=== PATIENT | female | born 1955 | race Caucasian/White ===

== ENCOUNTER 2016-05-13 08:44 | Inpatient (IN) | payer BC ==
[2016-05-13] MEDS ORDERED: Morphine INJ* 2 MG/ML 1 ML CARPUJECT IV ONE (09:15)
[2016-05-13] MEDS ORDERED: Ondansetron INJ* 2 MG/ML VIAL IV ONE (09:15)
--- NOTE | 2016-05-13 09:21 | ED ---
Abdominal Pain/Female - HPI Summary HPI Summary: Pt here w/ lower pelvic pain and dysuria x 1 week. Thought she may have had a UTI and was taking anbx for a dental infection so waited to see if this helped. No change in sx and has Lt flank pain this morning so decided to come into ED. Denies fever, chills, N/V/D, vaginal d/c. Only pain she has now is w/ urination. H/o kidney stone and this feels similar (required stent placement with Dr. Rodriguez - last f/u appt was 7-8 yrs ago - pt believes she passed her last stone 5 years ago). Lt flank pain worse driving over bumps on the way here. She's been drinking lots of iced tea and green tea - stones in the past have been identified as uric acid stones. She denies h/o gout and does not take uric acid lowering medications. She has been taking motrin s/p Lt knee replacement. Also has HTN and metabolic syndrome (good chol is low, bad chol is okay). H/o hives w/ toradol. Has had morphine in the past - only effect was mild dizziness. LAST ATE TOAST TODAY AT 7:30AM - History of Current Complaint Chief Complaint: EDAbdPain Stated Complaint: POSSIBLE KIDNEY STONE Time Seen by Provider: 05/13/16 09:02 Hx Obtained From: Patient Pain Intensity: 5 Allergies/Adverse Reactions: Allergies Allergy/AdvReac Type Severity Reaction Status Date / Time Hydrocodone AdvReac Mild itching, Verified 05/13/16 08:55 vomiting Ketorolac Tromethamine AdvReac Mild itching, Verified 05/13/16 08:55 [From Toradol] hives, made her crazy PMH/Surg Hx/FS Hx/Imm Hx Previously Healthy: Yes Endocrine/Hematology History: Denies: Hx Anticoagulant Therapy, Hx Blood Disorders, Hx Diabetes Cardiovascular History: Reports: Hx Hypertension - WELL CONTROLLED ON MED Denies: Hx Pacemaker/ICD Respiratory History: Reports: Hx Sleep Apnea GI History: Reports: Other GI Disorders - colon ca - resection Denies: Hx Crohn's Disease, Hx Diverticulosis, Hx Gall Bladder Disease, Hx Gastroesophageal Reflux Disease, Hx Gastrointestinal Bleed, Hx Irritable Bowel History: Reports: Hx Kidney Stones - uric acid - REQUIRED stent > 8 years ago , Michael Musculoskeletal History: Reports: Hx Orthopedic Injury - hx right ACL injury knee; Lt knee replacement Sensory History: Denies: Hx Hearing Aid Psychiatric History: Denies: Hx Panic Disorder - Cancer History Cancer Type, Location and Year: Colon cancer 2009 Hx Chemotherapy: No Hx Radiation Therapy: No - Surgical History Surgery Procedure, Year, and Place: BILATERAL ACL REPLACEMENT , BILATERAL BUNIONECTOMY, HYSTERECTOMY, COLON RESECTIO,RT LUMPECTOMY. Infectious Disease History: No Infectious Disease History: Denies: Traveled Outside the [place] in Last 30 Days - Family History Known Family History: Positive: None - Social History Occupation: Retired Lives: With Family - Alcohol Use: Occasionally Hx Substance Use: No Substance Use Type: Reports: None Hx Tobacco Use: No Smoking Status (MU): Never Smoked Tobacco Review of Systems Negative: Fever, Chills Eyes: Negative ENT: Negative Negative: Chest Pain Negative: Shortness Of Breath Gastrointestinal: Other - see HPI Positive: see HPI Musculoskeletal: Negative Negative: Bruising Neurological: Negative Psychological: Normal All Other Systems Reviewed And Are Negative: Yes Physical Exam Triage Information Reviewed: Yes Vital Signs On Initial Exam: Initial Vitals Temp Pulse Resp BP Pulse Ox 97.9 F 101 17 203/94 99 05/13/16 08:47 05/13/16 08:47 05/13/16 08:47 05/13/16 08:47 05/13/16 08:47 Vital Signs Reviewed: Yes Appearance: Positive: Well-Appearing, No Pain Distress, Obese Skin: Positive: Warm, Dry Head/Face: Positive: Normal Head/Face Inspection Eyes: Positive: Normal, EOMI, Conjunctiva Clear - anicteric sclera ENT: Positive: Hearing grossly normal, Pharynx normal - mucosa somewhat dry. Negative: Nasal congestion, Nasal drainage Neck: Positive: Supple Respiratory/Lung Sounds: Positive: Clear to Auscultation, Breath Sounds Present. Negative: Rales, Rhonchi, Wheezes Cardiovascular: Positive: Normal, RRR Abdomen Description: Positive: Nontender - very mild - pt decribes as "uncomfortable", Soft, CVA Tenderness (L) - mild. Negative: CVA Tenderness (R) Bowel Sounds: Positive: Present Musculoskeletal: Positive: Normal, Strength/ROM Intact Neurological: Positive: Normal, Sensory/Motor Intact, Alert, Oriented to Person Place, Time, CN Intact II-III Psychiatric: Positive: Normal - Anastasia Coma Scale Coma Scale Total: 15 Diagnostics - Vital Signs Vital Signs Temp Pulse Resp BP Pulse Ox 05/13/16 08:47 97.9 F 101 17 203/94 99 - Laboratory Result Diagrams: 05/13/16 09:55 05/13/16 09:55 Lab Statement: Any lab studies that have been ordered have been reviewed, and results considered in the medical decision making process. Re-Evaluation - Re-Evaluation First Eval Change: Worse - pt's flank pain is worse - will order more morphine Abdominal Pain Fem Course/Dx - Course Course Of Treatment: Pt presents w/ 1 week h/o lower pelvic pain and 1 day h/o Lt flank pain. H/o kidney stones and this feels similar. CT ab/pelvis reveals 1.6cm stone at UPJ and #2 1 cm stones within Lt kidney. U/A indicate infection w / + nitrates and bacteria. WBC's WNL and pt is afebrile w/ improved BP since here. She initially received 2mg morphine IV as she reported she was not in much pain at all and morphine makes her dizzy. After tolerating 2mg well and pain increasing, ordered 4mg morphine IV. Discussed w/ Dr. Rucker and Dr. Coughlin - pt to receive 250cc/hr of LR, rocephin 2 grams, gentamicin 160mg at 13: 00 and strict NPO (pt has not had fluids or food since here and made of aware of strict guidelines in an effort to not delay her care). Dr. Coughlin to take pt to OR today - he will coordinate w/ OR staff. Requested hospitalist admit d/t med hx HTN - spoke w/ Dr. Bush who will admit for OBV. Pt voices understanding her care plan for the day and agrees with plan. - Diagnoses Provider Diagnoses: Renal calculus, left - Provider Notifications Discussed Care Of Patient With: Dr. Rucker. Dr. Coughlin. Dr. Bush Discharge - Discharge Plan Condition: Stable Disposition: ADMITTED TO [facility]
--- NOTE | 2016-05-13 09:37 | RAD ---
CLINICAL HISTORY: Pelvic pain with left flank pain and dysuria COMPARISON: March 26, 2011 TECHNIQUE: Multiple contiguous axial CT scans were obtained of the abdomen and pelvis, without intravenous contrast enhancement. Coronal and sagittal multiplanar reformations are submitted for review. Oral contrast was not administered. FINDINGS: The study is limited by the lack of intravenous contrast. This limits evaluation of the solid organs and vasculature. LUNG BASES: The lung bases are clear. LIVER: The liver is diffusely low in attenuation compared to the spleen. There are no focal hepatic parenchymal masses. The liver is enlarged measuring 23 cm in long axis. BILE DUCTS: There is no intrahepatic or extrahepatic biliary dilatation. GALLBLADDER: The gallbladder is normal, without pericholecystic inflammatory change. PANCREAS: The pancreas is normal, without mass or ductal dilatation. SPLEEN: Normal in size and appearance. UPPER GI TRACT: Evaluation of the gastrointestinal tract is limited by incomplete gastric distention. The upper GI tract is unremarkable. SMALL BOWEL AND MESENTERY: The small bowel is normal in contour, course, and caliber. There is no obstruction or dilatation. COLON: There is post surgical change to the rectum. There are scattered diverticula of the sigmoid colon without pericolonic inflammatory change. There is a tubular, vermiform, hollow viscus that is blind ending, and originates from the cecum, consistent with a normal appendix. There is no periappendiceal inflammatory change. ADRENALS: Normal bilaterally. KIDNEYS: There is a 1.1 cm calculus of the midpole the left kidney. There is a large, approximately 1.6 x 1 x 1.1 cm calculus of the left UPJ. There is a 1 cm calculus of the lower pole of left kidney. There is no minimal pelviectasis.. BLADDER: The bladder is smooth in contour. PELVIC ORGANS: The pelvic organs are not visualized. AORTA: The aorta is normal. IVC: Unremarkable LYMPH NODES: There is no lymphadenopathy by size criteria. ABDOMINAL WALL: There is no evidence for abdominal wall hernia. BONES AND SOFT TISSUES: Mild degenerative changes are noted OTHER: None IMPRESSION: 1. MULTIPLE LARGE LEFT-SIDED RENAL CALCULI INCLUDING A 1.6 CM CALCULUS OF THE LEFT UPJ. THERE IS MILD PELVIECTASIS. 2. HEPATOMEGALY WITH FATTY INFILTRATION OF LIVER. 3. SCATTERED DIVERTICULA OF THE SIGMOID COLON
[2016-05-13 10:15] LABS: Hematocrit 43 % (35-47); Hemoglobin 14.1 g/dl (12.0-16.0); Mean Corpuscular HGB Conc 33 g/dl (31-36); Mean Corpuscular Hemoglobin 29 pg (27-31); Mean Corpuscular Volume 89 fL (80-97); Mean Platelet Volume 7 um3 (7.4-10.4); Red Blood Count 4.83 10^6/ul (4.0-5.4); Red Cell Distribution Width 13 % (10.5-15); White Blood Count 10.8 10^3/ul (3.5-10.8)
[2016-05-13 10:23] LABS: Add Diff/Slide Review? Slide Review Added; Comments Flag Yes
[2016-05-13 10:26] LABS: Albumin 4.5 g/dL (3.2-5.2); BUN/Creatinine Ratio 27.5 (8-20); C Reactive Protein 38.44 mg/L (< 5.00); EGFR African American 70.4 (>60); EGFR Non-African American 54.7 (>60); Globulin 3.5 g/dL (2-4); Potassium 3.8 mmol/L (3.5-5.0); Total Bilirubin 0.5 mg/dL (0.2-1.0)
[2016-05-13 10:29] LABS: Urine Bacteria 2+ (Absent); Urine Bilirubin Negative (Negative); Urine Glucose Negative (Negative); Urine Nitrite Positive (Negative)
[2016-05-13] MEDS ORDERED: cefTRIAXone(*) 1 GM in NS 0.9% 50 ML* 50 ML IVPB ONE (11:01)
[2016-05-13] MEDS ORDERED: Morphine INJ* 4 MG/ML 1 ML CARPUJECT IV ONE (11:34)
[2016-05-13] MEDS ORDERED: cefTRIAXone(*) 2 GM in NS 0.9% 100 ML* 100 ML IVPB ONE (11:47)
[2016-05-13] MEDS ORDERED: NS 0.9% 500 ML* 500 ML IV SCH (12:00)
[2016-05-13] MEDS ORDERED: Morphine INJ* 4 MG/ML 1 ML CARPUJECT IV PRN (12:01)
[2016-05-13] MEDS ORDERED: Gentamicin ADULT (*) 40 MG/ML VIAL IVPB ONE ×2 (12:05→13:00)
[2016-05-13] MEDS ORDERED: NS 0.9% 1000 ML* 1,000 ML IV SCH (12:15)
[2016-05-13] MEDS ORDERED: fentaNYL* 50 MCG/ML 2 ML VIAL (100 MCG VIAL) ONE (12:22)
[2016-05-13] MEDS ORDERED: KETAMINE HCL* 50 MG/ML 10 ML VIAL ONE (12:22)
[2016-05-13] MEDS ORDERED: Lidocaine 2% PF * 5 ML VIAL ONE (12:22)
[2016-05-13] MEDS ORDERED: Midazolam* 1 MG/ML 5 ML VIAL (5 MG) ONE (12:22)
[2016-05-13] MEDS ORDERED: Dexamethasone IV* 4 MG/ML 1 ML (4 MG) ONE (12:22)
[2016-05-13] MEDS ORDERED: Ondansetron INJ* 2 MG/ML VIAL ONE (12:22)
--- NOTE | 2016-05-13 12:31 | RAD ---
HISTORY: Obstructive urinary tract stones COMPARISONS: CT dated May 13, 2016 VIEWS: Frontal views of the abdomen. FINDINGS: BOWEL: There is a nonspecific bowel gas pattern, with nondilated small bowel gas noted. There is a large amount of stool within the colon. CALCULI: Evaluation is limited by overlying bowel. There is a 1.9 cm calculus of the left hemiabdomen corresponding to the pelvic stone noted on the previous CT examination. Evaluation of the of the renal parenchymal stones is limited by overlying bowel. BONES AND SOFT TISSUES: There are no osseous abnormalities. OTHER FINDINGS: The lung bases are clear. There is no subphrenic gas. IMPRESSION: 1. LIMITED STUDY. 2. LARGE AMOUNT OF STOOL WITHIN THE COLON. 3. LEFT-SIDED NEPHROLITHIASIS INCLUDING A 1.9 CM CALCULUS CORRESPONDING TO THE LEFT RENAL PELVIC STONE. THE CALCULI ARE NOT WELL VISUALIZED SECONDARY TO OVERLYING BOWEL.
[2016-05-13] MEDS ORDERED: Iohexol 180 (CONTRAST) 10 ML SDV IV ONE (12:35)
[2016-05-13] MEDS ORDERED: Buffered Lidocaine 1% SYR 3ML* 3 ML/SYR SYRINGE INTRADERM ONE (12:49)
[2016-05-13] MEDS ORDERED: Metoclopramide TAB* 10 MG PO ONE (12:49)
[2016-05-13] MEDS ORDERED: Famotidine IV* 10 MG/ML 2 ML (20 mg) IV ONE (12:49)
[2016-05-13] MEDS ORDERED: Famotidine IV* 10 MG/ML 2 ML (20 mg) ONE (13:03)
[2016-05-13] MEDS ORDERED: Gentamicin ADULT (*) 40 MG/ML VIAL ONE (13:03)
[2016-05-13] MEDS ORDERED: Metoclopramide TAB* 10 MG ONE (13:03)
[2016-05-13] MEDS ORDERED: Acetaminophen IV 1GM/100ML * 1,000 MG/100 ML VIAL IVPB ONE (13:08)
[2016-05-13] MEDS ORDERED: Acetaminophen IV 1GM/100ML * 0 ML ONE (13:10)
[2016-05-13] MEDS ORDERED: Acetaminophen IV 1GM/100ML * 100 ML ONE (13:19)
[2016-05-13] MEDS ORDERED: HYDROmorphone INJ* 1 MG/ML CARPUJECT SYRINGE IV PRN (14:16)
[2016-05-13] MEDS ORDERED: fentaNYL* 50 MCG/ML 2 ML VIAL (100 MCG VIAL) IV PRN (14:16)
[2016-05-13] MEDS ORDERED: Ondansetron INJ* 2 MG/ML VIAL IV PRN (14:16)
--- NOTE | 2016-05-13 14:31 | RAD ---
INDICATION: Kidney stone, flank pain COMPARISONS: CT dated May 13, 2016 TECHNIQUE: Fluoroscopy was provided for a retrograde pyelogram and stent placement. Total fluoroscopy time is: 12 seconds FINDINGS: Spot images demonstrate contrast within the left renal collecting system with left-sided cochlea. A left ureteral stent is noted. IMPRESSION: FLUOROSCOPY WAS PROVIDED FOR A RETROGRADE PYELOGRAM AND STENT PLACEMENT CPT II Codes: 6045F
[2016-05-13] MEDS ORDERED: Gentamicin ADULT per pharmacy 1 NOTE MISC FOLLOW UP PRN (14:44)
--- NOTE | 2016-05-13 15:19 | HP ---
HISTORY AND PHYSICAL: DATE OF ADMISSION: 05/13/16 PRIMARY CARE PROVIDER: Maggie Arizmendi MD UROLOGIST: Buster Rodriguez MD CHIEF COMPLAINT: Left flank pain. HISTORY OF PRESENT ILLNESS: Ms. Bae is a 61-year-old female who has a history of kidney stones in the past lasting approximately 5 years ago who presents to the emergency room with complaints of left flank pain. The patient states that beginning last Sunday, she began to have significant dysuria. She states that it felt like burning and knifes when she urinated. Additionally, she felt that there was blood in her urine. These were her only symptoms until the morning of admission when she began to feel aching in her left flank. The patient states that the aching has progressively worsened since she has been in the emergency room. She was concerned about the aching and came to the ER because she thought she had an infection. The patient denies any fevers or chills. She did; however, feel like she developed head cold yesterday. PAST MEDICAL HISTORY: 1. Hypertension. 2. History of kidney stone. 3. History of colon cancer, status post resection. 4. Metabolic syndrome. PAST SURGICAL HISTORY: 1. Vaginal hysterectomy with oophorectomy. 2. Basket retrieval of kidney stone. 3. Partial colectomy. 4. Left knee replacement. 5. Bilateral bunionectomies. MEDICATIONS: 1. Valsartan 160 mg p.o. daily. 2. Multivitamin 1 tab p.o. daily. ALLERGIES: TORADOL and HYDROCODONE. FAMILY HISTORY: Mom at the age of 83 of Alzheimer's. Dad at the age of 78 of a CVA. SOCIAL HISTORY: The patient has been a life-long nonsmoker. She drinks alcohol on occasions. She is a retired distiller. She is . She has 2 children. She indicates that her , Shekhar, is her health care proxy. REVIEW OF SYSTEMS: The patient denies any fevers or chills. She does state that her appetite was poor yesterday. No chest pain. No edema. No palpitations. She admits to mild cough. No shortness of breath. No nausea or vomiting. She admits to abdominal discomfort and left flank pain. She admits to hematuria and dysuria. No focal weakness or sensory loss. No sudden changes in vision. No dysphagia. No joint pains or muscle pains out of the ordinary. No rashes. No anxiety or depression. PHYSICAL EXAMINATION GENERAL: The patient is a well-developed, middle aged female, sitting on the edge of the stretcher, in no acute distress. VITAL SIGNS: Blood pressure 137/82, pulse 98, respirations 18, temp 97.9, and O2 sat 100% on room air. HEENT: Pupils are equal, they are round, and they react to light. Extraocular muscles are intact. Oropharynx is clear. Oral mucosa is moist. There is no submandibular, cervical, or supraclavicular adenopathy. NECK: Thyroid is not enlarged. No thyroid nodules are noted. PULMONARY: Lungs are clear to auscultation bilaterally. CARDIAC: Normal S1, S2. Heart rate is mildly tachycardic, but regular. There is no lower extremity edema. ABDOMEN: Bowel sounds present. Abdomen is soft, nontender, and nondistended. MUSCULOSKELETAL: There is no cyanosis or clubbing of the digits. There is no full active range of motion. NEUROLOGIC: Cranial nerves II through XII are grossly intact. Sensation is intact to light touch throughout. Strength is 5/5 and symmetric, both upper and lower extremities bilaterally. PSYCH: The patient is alert. She is oriented x3. Affect appears appropriate. SKIN: Warm and dry. There are no rashes. DIAGNOSTIC STUDIES/LABORATORY DATA: WBC 10.8, hemoglobin 14.1, hematocrit of 43, and platelets 238. Sodium 135, potassium 3.8, chloride 100, CO2 26, BUN 28 , creatinine 1.02, glucose 134, lactic acid 1.5, and calcium 10.0. Bilirubin 0.5, AST 24, ALT 47, and alk phos 81. CRP 38.44. Albumin 4.5. Lipase 30. Urinalysis reveals turbid urine with a specific gravity of 1.018, 2+ proteins, 3 + blood, positive nitrite, 3+ leukocyte esterase, 3+ wbc, and 2+ bacteria. Abdomen and pelvis CT: Multiple large left-sided renal calculi including a 1.6 cm calculus of the left UPJ. There is mild pelviectasis. There is hepatomegaly with fatty infiltration of the liver. There is scattered diverticula of the sigmoid colon. ASSESSMENT AND PLAN: Ms. Bae is a 61-year-old female who carries a history of kidney stones in the past who has been asymptomatic for the last 5 years who presents to the emergency room with complaints of dysuria and left flank pain and was found to have a very large left UPJ kidney stone with abnormal urinalysis. 1. Left ureteropelvic junction kidney stone: The plan is for the patient to go to the operating room today with Dr. Coughlin. She is being admitted and being made n.p.o. She will have morphine available for pain control. A urine culture will be obtained from her urinalysis; however, it maybe worthwhile to obtain urine culture from the urine obtained during the cystoscopy. 2. Urinary tract infection/possible pyelonephritis: The patient is afebrile. She does not have an elevated white blood cell count. Her urinalysis is markedly abnormal. She is receiving ceftriaxone and gentamicin per Dr. Coughlin's orders. Following her cystoscopy and treatment for her kidney stone, I will touch base with Urology to determine what antibiotics he would like drawn moving forward. I suspect the patient will need to be monitored overnight following her procedure. 3. Hypertension: The patient's blood pressure was markedly elevated when she first presented to the emergency room at 203/94. Her blood pressure is settled down into the 130s to 150s range, which I suspect is her baseline. It is possible the blood pressure obtained during triage was either false or markedly elevated related to severe pain. At this point, I am not adjusting her antihypertensive regimen. She will be resumed on her usual dose of Valsartan tomorrow and if her blood pressure then is elevated, we can make adjustments. 4. DVT prophylaxis: According to the Adult Thrombosis Prophylaxis Risk Factor Assessment Guide, the patient has a total risk factor score of 3 making her high risk. She will need heparin as DVT prophylaxis; however, this will need to start after her procedure. 5. Code status: Full and again, the patient indicates that her is her health care proxy. TIME SPENT: Fifty-five minutes was spent admitting this patient. CC: Maggie Arizmendi MD * [id number]/[facility] #: [id number] MTDD
--- NOTE | 2016-05-13 15:35 | CONS ---
CC: Dr. Arizmendi; Dr. Coughlin UROLOGY CONSULTATION REPORT: DATE OF CONSULT: 05/13/16 AGE: 61 years. SEX: Male. DIAGNOSES: 1. Obstructing calculus, left ureteropelvic junction. 2. Left hydronephrosis. 3. Left renal calculi. REQUESTING PHYSICIAN: Dr. Rucker in the emergency room. HISTORY OF PRESENT ILLNESS: Brown Bae is a 61-year-old lady who presented with about a 1-week histo ry of lower pelvic pain and dysuria. She was noted to have apparently large approximately 2 cm calc ulus at the left ureteropelvic junction in addition to left renal calculi. PAST MEDICAL HISTORY: Significant for: 1. Renal calculi. 2. Hypertension. 3. Arthritis. 4. History of colon cancer. PAST SURGICAL HISTORY: Significant for surgery for colon resection for colon cancer and left total knee replacement recently as well as ACL surgery. MEDICATIONS: On admission valsartan 160 mg daily in addition to ibuprofen 800 mg 3 times a day curr ently (about 4 weeks status post knee replacement). ALLERGIES: 1. HYDROCODONE (itching and vomiting). 2. TORADOL. PHYSICAL EXAM: General: Reveals a pleasant uncomfortable appearing lady. Vital signs: When she w as evaluated in consultation in the holding area, her temperature was 104, and blood pressure 100/70 with a heart rate of 108. Cardiovascular Exam: Regular rate and rhythm. Tachycardic. Lungs: Davis ar bilaterally. Abdomen: Soft with left flank tenderness. DIAGNOSTIC STUDIES/LAB DATA: I reviewed the CT scans and labs. IMPRESSION: A 61-year-old lady with an obstructing left ureteropelvic junction calculus and possibl e urosepsis. PLAN/RECOMMENDATIONS: Plan is for urgent left stent insertion to be followed in the future by litho tripsy or laser lithotripsy. Because of the large size and multiple number of calculi, she would probably require multiple proced ures in an effort to render her stone free and this has been discussed with the patient and family. [id number]/[facility] #: [id number]
[2016-05-13] MEDS: NS 0.9% 1000 ML* 1,000 ML IV SCH (16:51)
[2016-05-13] MEDS: Acetaminophen TAB* 325 MG PO PRN (19:14)
[2016-05-13] MEDS: Heparin VIAL(*) 5000 UNITS/ML VIAL (FIVE THOUSAND) SUBCUT SCH ×2 (20:14→20:18)
--- NOTE | 2016-05-13 20:17 | RAD ---
HISTORY: Postop stent placement COMPARISONS: December 11, 2016 VIEWS: Frontal views of the abdomen. FINDINGS: BOWEL: There is a nonspecific bowel gas pattern, with nondilated small bowel gas noted. There is a large amount of stool within the colon. CALCULI: Again noted is a calculus of the proximal left ureter. A left ureteral stent is noted. There are additional calculi overlying the left renal parenchymal shadow up to 1.5 cm in size. BONES AND SOFT TISSUES: Mild degenerative changes are noted OTHER FINDINGS: The lung bases are clear. There is no subphrenic gas. IMPRESSION: LEFT-SIDED NEPHROLITHIASIS WITH A LEFT URETERAL STENT
[2016-05-14] MEDS ORDERED: Gentamicin ADULT (*) 160 MG in NS 0.9% 100 ML* 100 ML IVPB ONE (01:30)
--- NOTE | 2016-05-14 01:50 | OP ---
CC: Dr. Maggie Arizmendi; Dr. Fam Coughlin OPERATIVE REPORT: DATE OF OPERATION: 05/13/16 DATE OF : 51 SURGEON: Fam Coughlin MD ANESTHESIOLOGIST: Dr. Mcmillan. ANESTHESIA: General. PRE-OP DIAGNOSES: 1. Left hydronephrosis. 2. Large obstructing calculus, left ureteropelvic junction. 3. Left renal calculi. 4. Urosepsis. POST-OP DIAGNOSES: 1. Left hydronephrosis. 2. Large obstructing calculus, left ureteropelvic junction. 3. Left renal calculi. 4. Urosepsis. OPERATIVE PROCEDURE: Cystoscopy, left retrograde pyelogram, left ureteral calculus manipulation, an d left stent insertion. INDICATIONS: Brown Bae is a 61-year-old lady who was evaluated in the emergency room for left flank pain and nausea. She was noted to have a fairly large approximately 2-cm calculus at the left uret eropelvic junction with left hydronephrosis and additional left renal calculi. She was initially af ebrile when evaluated in the emergency room, although her urinalysis did show bacteria. By the time she was brought to the holding area, she spiked a temperature to 104 along with shaking chills and drop in oxygen saturation and has been urgently for left stent insertion to be followed at some poin t in the future by lithotripsy. COMPLICATIONS: None. SPECIMEN: Urine from left kidney for culture and sensitivity. OPERATIVE FINDINGS: Large obstructing calculus, left ureteropelvic junction with additional left re nal calculi. STENT USED: 8.5-Danish, 28-cm silicone stent, left ureter. POSTOPERATIVE CONDITION: Stable. DESCRIPTION OF PROCEDURE: After induction of general anesthesia, the patient was placed in dorsal l ithotomy position. Sequential compression devices were in place and functioning. Initial cystoscop y revealed a normally located right and left ureteral orifices. There were mild hyperemic changes n oted throughout the bladder suggestive of cystitis. Left retrograde pyelogram revealed a large obst ructing calculus at the ureteropelvic junction with fullness of the collecting system proximal to th at. The wire was advanced up to the level of the calculus as well open-ended catheter and the calcu serena was carefully manipulated proximally. Once this was done, the open-ended catheter could be adva nced into the proximal collecting system and urine was drained from the left kidney and sent for cul ture. 8.5-Danish, 28-cm silicone stent was introduced under fluoroscopic monitoring with good proxim al and distal positioning obtained. The patient tolerated the procedure satisfactorily and was jean sferred back to the recovery area in stable condition. [id number]/[facility] #: [id number]
[2016-05-14] MEDS: NS 0.9% 1000 ML* 1,000 ML IV SCH (03:06)
[2016-05-14] MEDS: Heparin VIAL(*) 5000 UNITS/ML VIAL (FIVE THOUSAND) SUBCUT SCH ×3 (05:50→23:09)
[2016-05-14] MEDS: Valsartan TAB* 160 MG PO SCH (07:52)
[2016-05-14] MEDS: Acetaminophen TAB* 325 MG PO PRN ×3 (07:59→19:04)
[2016-05-14 08:14] LABS: Hematocrit 36 % (35-47); Hemoglobin 11.9 g/dl (12.0-16.0); Mean Corpuscular HGB Conc 33 g/dl (31-36); Mean Corpuscular Hemoglobin 30 pg (27-31); Mean Corpuscular Volume 90 fL (80-97); Mean Platelet Volume 7 um3 (7.4-10.4); Red Blood Count 4.02 10^6/ul (4.0-5.4); Red Cell Distribution Width 14 % (10.5-15); White Blood Count 17.7 10^3/ul (3.5-10.8)
[2016-05-14 08:22] LABS: Calcium 8.9 mg/dL (8.6-10.3); EGFR African American 75.5 (>60); EGFR Non-African American 58.7 (>60); Potassium 4.2 mmol/L (3.5-5.0)
--- NOTE | 2016-05-14 09:54 | PN ---
Subjective Date of Service: 05/14/16 Interval History: Pt is feeling ok. She states the stent is bothering her. She denies any pain however. No SOB. Objective Active Medications: Acetaminophen (Tylenol Tab*) 650 mg PO Q4H PRN PRN Reason: PAIN Last Admin: 05/14/16 07:59 Dose: 650 mg Heparin Sodium (Porcine) (Heparin Vial(*)) 5,000 units SUBCUT Q8HR [facility] Last Admin: 05/14/16 05:50 Dose: 5,000 units Lactated Ringer's (Lactated Ringers 1000 Ml Bag*) 1,000 mls @ 125 mls/hr IV PER RATE [facility] Ceftriaxone Sodium 1,000 mg/ (Sodium Chloride) 50 mls @ 200 mls/hr IVPB Q24H [facility] Sodium Chloride (Ns 0.9% 1000 Ml*) 1,000 mls @ 125 mls/hr IV PER RATE [facility] Last Admin: 05/14/16 03:06 Dose: 125 mls/hr Gentamicin Sulfate 120 mg/ (Sodium Chloride) 103 mls @ 206 mls/hr IVPB Q12H [facility] Morphine Sulfate (Morphine Inj (Syringe)*) 4 mg IV Q2H PRN PRN Reason: PAIN Last Admin: 05/13/16 12:11 Dose: 4 mg Pharmacy Consult (Gentamicin Adult Per Pharmacy) 1 note FOLLOW UP . PRN PRN Reason: PER PROTOCOL Pharmacy Profile Note (Gentamicin Peak Level*) 1 note FOLLOW UP 1430 ONE Stop: 05/15/16 14:31 Pharmacy Profile Note (Gentamicin Trough Level) 1 note FOLLOW UP 1300 ONE Stop: 05/15/16 13:01 Valsartan (Diovan Tab*) 160 mg PO DAILY [facility] Last Admin: 05/14/16 07:52 Dose: 160 mg Vital Signs 05/13/16 05/13/16 05/13/16 12:00 12:01 12:11 Temperature Pulse Rate 94 100 Respiratory 20 Rate Blood Pressure (mmHg) O2 Sat by Pulse 99 96 Oximetry 05/13/16 05/13/16 05/13/16 12:13 12:21 14:11 Temperature 98.5 F 100.6 F Pulse Rate 98 110 Respiratory 20 20 Rate Blood Pressure 149/76 128/80 126/78 (mmHg) O2 Sat by Pulse 97 Oximetry 05/13/16 05/13/16 05/13/16 14:20 14:25 14:30 Temperature Pulse Rate 105 101 99 Respiratory 20 20 20 Rate Blood Pressure 124/62 130/62 118/61 (mmHg) O2 Sat by Pulse 95 97 98 Oximetry 05/13/16 05/13/16 05/13/16 14:45 15:00 15:15 Temperature Pulse Rate 96 96 96 Respiratory 20 18 20 Rate Blood Pressure 124/59 119/61 94/80 (mmHg) O2 Sat by Pulse 99 97 97 Oximetry 05/13/16 05/13/16 05/13/16 15:30 15:45 16:01 Temperature 100.4 F Pulse Rate 96 100 98 Respiratory 18 18 18 Rate Blood Pressure 115/63 117/59 115/61 (mmHg) O2 Sat by Pulse 99 98 98 Oximetry 05/13/16 05/13/16 05/13/16 16:30 17:08 17:25 Temperature 99.0 F Pulse Rate 96 Respiratory 18 18 Rate Blood Pressure 123/59 (mmHg) O2 Sat by Pulse 97 98 97 Oximetry 05/13/16 05/13/16 05/13/16 17:32 17:35 18:18 Temperature 98.8 F Pulse Rate 95 Respiratory 18 18 18 Rate Blood Pressure 109/62 (mmHg) O2 Sat by Pulse 99 97 Oximetry 05/13/16 05/13/16 05/13/16 18:39 19:20 20:32 Temperature 101.4 F 99.9 F Pulse Rate 95 93 Respiratory 18 22 20 Rate Blood Pressure 110/55 113/62 (mmHg) O2 Sat by Pulse 100 98 Oximetry 05/13/16 05/13/16 05/14/16 22:00 23:02 00:00 Temperature 98.4 F Pulse Rate 68 Respiratory 20 20 20 Rate Blood Pressure 113/55 (mmHg) O2 Sat by Pulse 98 98 98 Oximetry 05/14/16 05/14/16 05/14/16 02:00 03:31 04:00 Temperature 98.5 F Pulse Rate 77 Respiratory 20 20 20 Rate Blood Pressure 119/65 (mmHg) O2 Sat by Pulse 100 100 100 Oximetry 05/14/16 05/14/16 05/14/16 06:00 07:24 08:00 Temperature 98.3 F Pulse Rate 88 Respiratory 20 16 18 Rate Blood Pressure 135/66 (mmHg) O2 Sat by Pulse 100 98 97 Oximetry Oxygen Devices in Use Now: None Appearance: Middle aged female standing in the room, NAD Eyes: No Scleral Icterus Ears/Nose/Mouth/Throat: Mucous Membranes Moist Respiratory: Symmetrical Chest Expansion and Respiratory Effort, Clear to Auscultation Cardiovascular: NL Sounds; No Murmurs; No JVD, RRR, No Edema Abdominal: NL Sounds; No Tenderness; No Distention Extremities: No Clubbing, Cyanosis Skin: No Rash or Ulcers, No Nodules or Sclerosis Neurological: Alert and Oriented x 3 Result Diagrams: 05/14/16 07:34 05/14/16 07:34 Assess/Plan/Problems-Billing Ms Bae is a 61 yo F who has a h/o kidney stones, HTN and JERRI who presented to the ER with c/o L flank pain and dysuria and was found to have a large 1.6cm UPJ stone and associated UTI/pyelonephritis. - Patient Problems (1) Kidney stone on left side Current Visit: Yes Status: Acute Code(s): N20.0 - CALCULUS OF KIDNEY SNOMED Code(s): 19933381 Comment: The patient is s/p urgent L ureteral stent placement yesterday. She will need to follow up with urology for more definitive treatment of her stones (large stones noted at the UPJ and in the left renal pelvis). (2) Pyelonephritis Current Visit: Yes Status: Acute Code(s): N12 - TUBULO-INTERSTITIAL NEPHRITIS, NOT SPCF ACUTE OR CHRONIC SNOMED Code(s): 64993296 Comment: The patient was found to have purulent urine behind the L UPJ stone. She spiked a fever pre-op and post-op. Improved today. Culture results are pending. Continue ceftriaxone and gentamicin. Will try to touch base with Dr. Duran especially given her recent (~1 month ago) knee replacement. (3) Elevated serum creatinine Current Visit: Yes Status: Acute Code(s): R79.89 - OTHER SPECIFIED ABNORMAL FINDINGS OF BLOOD CHEMISTRY SNOMED Code(s): 171730852 Comment: Creatinine on admission elevated above baseline. Improving but still not back to baseline. (4) HTN (hypertension) Current Visit: Yes Status: Acute Code(s): I10 - ESSENTIAL (PRIMARY) HYPERTENSION SNOMED Code(s): 08654085 Comment: BP is under good control. Continue valsartan. (5) JERRI (obstructive sleep apnea) Current Visit: Yes Status: Acute Code(s): G47.33 - OBSTRUCTIVE SLEEP APNEA ( ADULT) (PEDIATRIC) SNOMED Code(s): 97808400 Comment: Diagnosis noted. (6) DVT prophylaxis Current Visit: Yes Status: Acute Code(s): CQW8266 - SNOMED Code(s): 127122745 Comment: SQ heparin (7) Full code status Current Visit: Yes Status: Acute Code(s): Z78.9 - OTHER SPECIFIED HEALTH STATUS SNOMED Code(s): 310072674
[2016-05-14] MEDS ORDERED: cefTRIAXone VIAL(*) 1,000 MG in NS 0.9% 50 ML* 50 ML IVPB SCH (12:00)
[2016-05-14] MEDS ORDERED: Gentamicin ADULT (*) 120 MG in NS 0.9% 100 ML* 100 ML IVPB SCH (13:30)
[2016-05-14] MEDS: CMC:Solifenacin(NF) 5 MG TAB PO SCH (13:51)
[2016-05-14] MEDS: Docusate CAP* 100 MG PO SCH ×2 (13:51→20:46)
[2016-05-14] MEDS: traMADol TAB* 50 MG PO PRN (16:41)
[2016-05-14] MEDS ORDERED: Metoprolol Tartrate IV* 1 MG/ML 5 ML VIAL IV PRN (20:09)
[2016-05-15] MEDS: traMADol TAB* 50 MG PO PRN ×2 (01:50→08:58)
[2016-05-15] MEDS: Acetaminophen TAB* 325 MG PO PRN ×2 (01:52→06:24)
[2016-05-15] MEDS: Heparin VIAL(*) 5000 UNITS/ML VIAL (FIVE THOUSAND) SUBCUT SCH (06:18)
[2016-05-15 07:35] LABS: Hematocrit 35 % (35-47); Hemoglobin 11.8 g/dl (12.0-16.0); Mean Corpuscular HGB Conc 33 g/dl (31-36); Mean Corpuscular Hemoglobin 29 pg (27-31); Mean Corpuscular Volume 88 fL (80-97); Mean Platelet Volume 7 um3 (7.4-10.4); Red Blood Count 4.01 10^6/ul (4.0-5.4); Red Cell Distribution Width 13 % (10.5-15); White Blood Count 12.3 10^3/ul (3.5-10.8)
[2016-05-15 07:58] VITALS: BP 145/89
--- NOTE | 2016-05-15 08:09 | PN ---
Subjective Date of Service: 05/15/16 Interval History: Pt is feeling ok. Slightly nauseated this AM. Pain is under good control. She feels ready to go home. Objective Active Medications: Acetaminophen (Tylenol Tab*) 650 mg PO Q4H PRN PRN Reason: PAIN Last Admin: 05/15/16 06:24 Dose: 650 mg Docusate Sodium (Colace Cap*) 100 mg PO TID [facility] Last Admin: 05/14/16 20:46 Dose: 100 mg Heparin Sodium (Porcine) (Heparin Vial(*)) 5,000 units SUBCUT Q8HR [facility] Last Admin: 05/15/16 06:18 Dose: 5,000 units Ceftriaxone Sodium 1,000 mg/ (Sodium Chloride) 50 mls @ 200 mls/hr IVPB Q24H [facility] Last Admin: 05/14/16 12:09 Dose: 200 mls/hr Metoprolol Tartrate (Lopressor Iv*) 5 mg IV Q6H PRN PRN Reason: BLOOD PRESSURE Last Admin: 05/14/16 20:47 Dose: 5 mg Metoprolol Tartrate (Lopressor Tab*) 25 mg PO BID [facility] Morphine Sulfate (Morphine Inj (Syringe)*) 4 mg IV Q2H PRN PRN Reason: PAIN Last Admin: 05/13/16 12:11 Dose: 4 mg Solifenacin (Vesicare(Nf)) 10 mg PO DAILY [facility] Last Admin: 05/14/16 13:51 Dose: 10 mg Tramadol HCl (Ultram*) 50 mg PO Q6H PRN PRN Reason: PAIN Last Admin: 05/15/16 01:50 Dose: 50 mg Valsartan (Diovan Tab*) 160 mg PO DAILY [facility] Last Admin: 05/14/16 07:52 Dose: 160 mg Vital Signs 05/14/16 05/14/16 05/14/16 16:41 18:41 19:53 Temperature 98.9 F Pulse Rate 89 Respiratory 18 18 18 Rate Blood Pressure 180/77 (mmHg) O2 Sat by Pulse 96 Oximetry 05/14/16 05/14/16 05/14/16 20:55 23:04 23:19 Temperature 98.2 F Pulse Rate 78 Respiratory 18 16 Rate Blood Pressure 151/80 (mmHg) O2 Sat by Pulse 93 93 Oximetry 05/15/16 05/15/16 05/15/16 01:50 03:50 04:44 Temperature 98.0 F Pulse Rate 73 Respiratory 18 18 18 Rate Blood Pressure 155/77 (mmHg) O2 Sat by Pulse 95 Oximetry 05/15/16 05/15/16 07:47 07:48 Temperature 98.0 F Pulse Rate 71 Respiratory 20 18 Rate Blood Pressure 145/89 (mmHg) O2 Sat by Pulse 97 Oximetry Oxygen Devices in Use Now: None Appearance: Middle aged female lying in bed, NAD Eyes: No Scleral Icterus Ears/Nose/Mouth/Throat: Mucous Membranes Moist Respiratory: Symmetrical Chest Expansion and Respiratory Effort, Clear to Auscultation Cardiovascular: NL Sounds; No Murmurs; No JVD, RRR, No Edema Abdominal: NL Sounds; No Tenderness; No Distention Extremities: No Clubbing, Cyanosis Skin: No Rash or Ulcers, No Nodules or Sclerosis Neurological: Alert and Oriented x 3 Result Diagrams: 05/15/16 07:22 05/14/16 07:34 Assess/Plan/Problems-Billing Ms Bae is a 61 yo F who has a h/o kidney stones, HTN and JERRI who presented to the ER with c/o L flank pain and dysuria and was found to have a large 1.6cm UPJ stone and associated UTI/pyelonephritis. - Patient Problems (1) Kidney stone on left side Current Visit: Yes Status: Acute Code(s): N20.0 - CALCULUS OF KIDNEY SNOMED Code(s): 92638363 Comment: The patient is s/p urgent L ureteral stent placement 05/13/16. She will need to follow up with urology for more definitive treatment of her stones (large stones noted at the UPJ and in the left renal pelvis). (2) Pyelonephritis Current Visit: Yes Status: Acute Code(s): N12 - TUBULO-INTERSTITIAL NEPHRITIS, NOT SPCF ACUTE OR CHRONIC SNOMED Code(s): 08841569 Comment: Urine culture grew E coli-sensitive to ceftriaxone but intermediate to cefazolin. Will discharge the patient home on Bactrim DS 1 tab BID for 12 more days. She will need to follow up with Dr. Childs in the office for further treatment. (3) Elevated serum creatinine Current Visit: Yes Status: Acute Code(s): R79.89 - OTHER SPECIFIED ABNORMAL FINDINGS OF BLOOD CHEMISTRY SNOMED Code(s): 489147193 Comment: Creatinine was improved yesterday-not rechecked today. (4) HTN (hypertension) Current Visit: Yes Status: Acute Code(s): I10 - ESSENTIAL (PRIMARY) HYPERTENSION SNOMED Code(s): 46044350 Comment: BP is mildly elevated. Will not make changes at this time but she will need to follow up with her PCP for further adjustments in her BP regimen. (5) JERRI (obstructive sleep apnea) Current Visit: Yes Status: Acute Code(s): G47.33 - OBSTRUCTIVE SLEEP APNEA ( ADULT) (PEDIATRIC) SNOMED Code(s): 97399685 Comment: Continue CPAP. (6) DVT prophylaxis Current Visit: Yes Status: Acute Code(s): UZQ2725 - SNOMED Code(s): 381382990 Comment: SQ heparin (7) Full code status Current Visit: Yes Status: Acute Code(s): Z78.9 - OTHER SPECIFIED HEALTH STATUS SNOMED Code(s): 575673399 Status and Disposition: d/c home
[2016-05-15] MEDS: Valsartan TAB* 160 MG PO SCH (08:57)
[2016-05-15] MEDS: Docusate CAP* 100 MG PO SCH (08:57)
[2016-05-15] MEDS: CMC:Solifenacin(NF) 5 MG TAB PO SCH (08:58)
[2016-05-15] MEDS ORDERED: Metoprolol Tartrate TAB* 25 MG PO SCH (09:00)
[2016-05-15] MEDS ORDERED: Gentamicin Trough Level 1 NOTE MISC FOLLOW UP ONE (13:00)
[2016-05-15] MEDS ORDERED: Gentamicin PEAK LEVEL* 1 NOTE MISC FOLLOW UP ONE (14:30)
--- NOTE | 2016-05-15 23:29 | DS ---
DISCHARGE SUMMARY: DATE OF ADMISSION: 05/13/16 DATE OF DISCHARGE: 05/15/16 PRIMARY CARE PROVIDER: Dr. Arizmendi. PRINCIPAL DIAGNOSIS: Left ureteropelvic junction kidney stone with associated pyelonephritis of the left kidney. SECONDARY DIAGNOSES: 1. Hypertension. 2. History of colon cancer. 3. Obstructive sleep apnea. DISCHARGE MEDICATIONS: 1. Valsartan 160 mg p.o. daily. 2. Multivitamin 1 tab p.o. daily. 3. Ferrofluid 1 tab p.o. daily. 4. Cataplex A-C-P one tab p.o. at noon, two tabs p.o. b.i.d. with meals. 5. Tuna [place]-3 one tab p.o. b.i.d. with meals. 6. drop p.o. daily. 7. Drainage-Tone one drop p.o. daily. 8. A-C Carbamide two tabs p.o. t.i.d. with meals. 9. Cataplex B two tabs p.o. b.i.d. with meals. 10. Dayron Ra Chi 10 drops oral with breakfast. 11. Renafood one tab p.o. with lunch and two tabs p.o. with dinner. 12. Drenamin one tab p.o. t.i.d. with meals. 13. Cardio-Plus one tab p.o. daily. 14. Cataplex D one tab p.o. with lunch, two tabs p.o. b.i.d. with meals. 15. Multizyme two tabs p.o. q.a.c. 16. Tramadol 50 mg p.o. q.6 hours p.r.n. pain. 17. Bactrim DS one tab p.o. b.i.d. x24 more doses. 18. VESIcare 10 mg p.o. daily. 19. Tylenol 650 mg p.o. q.4 hours p.r.n. pain. HOSPITAL COURSE: Brown Bae is a 61-year-old female who has a history of recurrent kidney stones, hypertension and obstructive sleep apnea who presented to the emergency room on 05/13/16 with complaints of dysuria and lower abdominal discomfort. While in the emergency room, she began to develop left flank pain. CT scan of the abdomen and pelvis revealed a 1.6 cm ureteropelvic junction stone on the left. The patient was initially afebrile in the emergency room; however, just prior to going to the operating room, she spiked a fever. The patient's urinalysis upon presentation to the ER was abnormal. The patient was started on ceftriaxone and gentamicin as recommended by Dr. Coughlin. The patient underwent successful emergent stent placement to the left kidney. The patient was found to have purulent urine behind the stone. Ultimately, E. coli grew from the urine. This was essentially pansensitive. The patient was then started on Bactrim DS one tab p.o. b.i.d. to complete 12 more days of therapy. Of note, the patient should remain on antibiotic therapy while the stent is in place. The patient will need definitive treatment of the multiple left renal kidney stones that were identified on the CT imaging. The patient will need to follow up with Dr. Coughlin or Dr. Rodriguez for further management of this. Of note, the patient's blood pressure was mild to moderately elevated during the course of the hospitalization. I have left her on her usual dose of valsartan; however, she will need to follow up with her primary care provide for further management of her blood pressure. FOLLOWUP CONCERNS: The patient is being discharged home today, 05/15/16. ACTIVITY LEVEL: As tolerated. DIET: Regular. CONDITION ON DISCHARGE: Stable. TIME SPENT: 35 minutes was spent discharging this patient. CC: Dr. Arizmendi; Dr. Coughlin * [id number]/[facility] #: [id number] [facility]
== END 2016-05-15 10:00 | disposition home or self-care (01) | DRG 465 ==
LOC: ED 08:44 → SSU 11:39 → OBSVTOIN 05-14 16:30
PROVIDERS: ADMIT Hospitalist; ATTEND Hospitalist
PROC: 0T778DZ Dilation of Left Ureter with Intraluminal Device, Via Natural or Artificial Opening Endoscopic (ICD-10-PCS; 2016-05-13)
PROC: BT1FZZZ Fluoroscopy of Left Kidney, Ureter and Bladder (ICD-10-PCS; principal; 2016-05-13 13:30)
DX: N13.2 Hydronephrosis with renal and ureteral calculous obstruction (principal); E88.81 Metabolic syndrome and other insulin resistance; N10 Acute pyelonephritis; B96.20 Unspecified Escherichia coli [E. coli] as the cause of diseases classified elsewhere; I10 Essential (primary) hypertension; G47.33 Obstructive sleep apnea (adult) (pediatric); Z85.038 Personal history of other malignant neoplasm of large intestine; Z87.442 Personal history of urinary calculi; Z79.899 Other long term (current) drug therapy; Z88.8 Allergy status to other drugs, medicaments and biological substances; Z82.49 Family history of ischemic heart disease and other diseases of the circulatory system
CPT/HCPCS: 36415; 74000; 74176; 74420; 80048; 80053; 81003; 81015; 83605; 83690; 85025; 85027; 86140; 87077; 87086; 87186; 94760; A9270-GY; C1876; G0378; J0696; J1100; J1580; J1644; J2250; J2270; J2405; J3010; J3490

== ENCOUNTER 2016-05-22 11:51 | Day surgery (SDC) | payer BC ==
[~2016-05-22 11:51] MED LIST: Buffered Lidocaine 1% SYR 3ML* 3 ML/SYR SYRINGE INTRADERM ONE; Dexamethasone IV* 4 MG/ML 1 ML (4 MG) IV SLOW PU ONE; Dexamethasone IV* 4 MG/ML 1 ML (4 MG) ONE; DiMENhydriNATE IV* 50 MG/ML VIAL IV PUSH PRN; Famotidine IV* 10 MG/ML 2 ML (20 mg) IV ONE; Famotidine IV* 10 MG/ML 2 ML (20 mg) ONE; Gentamicin ADULT (*) 160 MG in NS 0.9% 100 ML* 100 ML IVPB ONE; Midazolam* 1 MG/ML 2 ML VIAL (2 MG) ONE; Ondansetron INJ* 2 MG/ML VIAL IV PRN; PROCHLORPERAZINE INJ 5 MG/ML 2 ML VIAL IV PRN; cefTRIAXone(*) 2 GM in NS 0.9% 100 ML* 100 ML IVPB ONE; fentaNYL* 50 MCG/ML 2 ML VIAL (100 MCG VIAL) IV PRN; fentaNYL* 50 MCG/ML 2 ML VIAL (100 MCG VIAL) ONE
--- NOTE | 2016-05-22 12:32 | RAD ---
INDICATION: Left-sided nephrolithiasis COMPARISON: May 13, 2016 TECHNIQUE: A single view of the abdomen is submitted. FINDINGS: Bones: There are no acute bony findings. Soft tissues: The soft tissues appear normal. The psoas margins are sharp. Bowel gas pattern: Normal Calcifications: There is a dominant calcification projecting over the proximal stent and measuring up to 1.9 cm not significantly changed in position. Other: There is left ureteral stent in expected position. IMPRESSION: LEFT-SIDED NEPHROLITHIASIS. LEFT URETERAL STENT
[2016-05-22] MEDS ORDERED: fentaNYL* 50 MCG/ML 2 ML VIAL (100 MCG VIAL) ONE (14:25)
[2016-05-22] MEDS ORDERED: Propofol* 10 MG/ML 20 ML BTL IV PUSH ONE (14:33)
[2016-05-22] MEDS ORDERED: Ondansetron INJ* 2 MG/ML VIAL ONE (14:33)
[2016-05-22] MEDS ORDERED: Lidocaine 2% PF * 5 ML VIAL ONE (14:33)
[2016-05-22] MEDS ORDERED: Ketorolac INJ* 30 MG/ML 1 ML VIAL ONE (14:33)
[2016-05-22 16:00] VITALS: BP 164/71
--- NOTE | 2016-05-22 16:42 | RAD ---
Indication: LEFT renal calculus. Postop. Comparison: 1227 hours exam of the same day. Technique: Supine abdomen. Report: Bowel contents significantly obscures the renal fossa. Suggestion of a 1.9 cm stone at level of the LEFT ureteropelvic junction similar to the prior exam. Given magnitude of superimposed stool this finding is not entirely specific. No additional suspicious calcifications evident. LEFT pelvic phlebolith noted. Midline pelvic bowel anastomosis. Unremarkable soft tissue contours. IMPRESSION: Limited exam due to superimposed bowel contents with suggestion of persistent 1.9 cm stone at the level of the LEFT ureteropelvic junction.
--- NOTE | 2016-05-23 07:16 | OP ---
DATE OF OPERATION: 05/22/16 - [facility] DATE OF : 51 SURGEON: Fam Coughlin MD ANESTHESIOLOGIST: Dr. Bruce. ANESTHESIA: General. PRE-OP DIAGNOSIS: Left renal calculi. POST-OP DIAGNOSIS: Left renal calculi. OPERATIVE PROCEDURE: Shock wave lithotripsy of left renal calculi. INDICATIONS: Brown Bae is a 61-year-old lady who had undergone urgent left stent insertion for a large obstructing calculus in the left ureteropelvic junction. In addition, she has multiple additional left renal calculi and is now being brought in for shock wave lithotripsy. Because of the fairly large stone burden, I have explained to her that she may require multiple procedures in an effort to try to render her stone free. COMPLICATIONS: None. POSTOPERATIVE CONDITION: Stable. DESCRIPTION OF PROCEDURE: After induction of general anesthesia, the patient was placed on lithotripsy table in supine position. The dominant calculus was at the left ureteropelvic junction adjacent to the proximal aspect of the left stent. This was localized using fluoroscopy and shock wave lithotripsy was commenced at a rate of 90 shocks per minute. Periodic imaging revealed good localization and fragmentation and a total of 1400 shocks were administered to this calculus. There was an additional large calculus in the mid to lower pole area of the left kidney and this was then targeted under fluoroscopic monitoring for an additional 1000 shocks. A total of 2400 shocks were used during the procedure. The plan is to obtain imaging studies postoperatively to assess the degree of fragmentation and then to decide whether she will need any further procedures to completely fragment the stones prior to stent removal. The patient tolerated the procedure satisfactorily and was transferred back to the recovery area in stable condition. CC: Dr. Maggie Arizmendi* [id number]/[facility] #: [id number] [facility]
== END 2016-05-22 16:11 | disposition home or self-care (01) ==
LOC: OR 11:51
PROVIDERS: ATTEND Urology
DX: N13.2 Hydronephrosis with renal and ureteral calculous obstruction (principal); Z85.038 Personal history of other malignant neoplasm of large intestine; I10 Essential (primary) hypertension; G47.33 Obstructive sleep apnea (adult) (pediatric)
CPT/HCPCS: 74000; J0696; J1100; J1580; J1885; J2250; J2405; J2704; J3010

== ENCOUNTER → 2016-06-19 06:58 | Day surgery (SDC) | payer BC ==
--- NOTE | 2016-06-13 23:45 | HP ---
ADMITTING HISTORY AND PHYSICAL: DATE OF ADMISSION: 06/19/16 ADMITTING DIAGNOSIS: Multiple large left renal calculi. PLANNED PROCEDURE: Shock wave lithotripsy, left renal calculi; possible left ureteroscopy, laser; stent replacement (decision to be made based on preoperative imaging on day of surgery). SURGEON: Dr. Coughlin. ADMITTING HISTORY AND PHYSICAL: Brown Bae is a 61-year-old lady who had initially been evaluated in April for a large obstructing calculus at the left ureteropelvic junction with urosepsis. She had undergone urgent stent insertion followed by lithotripsy with partial fragmentation noted. She passed several fragments and stone analysis revealed hybrid 70% uric acid, 30% calcium oxalate calculus. She has been started on Urocit 20 mEq twice a day and is now being brought in for repeat lithotripsy, possible laser lithotripsy. Because of the very large initial stone burden, I had explained to her that she may well require multiple procedures in an effort to try to render her stone-free. PAST MEDICAL HISTORY: Significant for: 1. Hypertension. 2. Renal calculi. 3. History of colon cancer. 4. Arthritis. MEDICATIONS: 1. Valsartan 160 mg daily. 2. Ibuprofen p.r.n. ALLERGIES AND INTOLERANCES: HYDROCODONE and TORADOL. PHYSICAL EXAMINATION GENERAL: Reveals a pleasant, healthy-appearing, middle-aged lady. VITAL SIGNS: Blood pressure is 130/80, pulse 77 per minute and regular, temperature 96.5, oxygen saturation 99%. LUNGS: Clear bilaterally. CARDIOVASCULAR: Regular rate and rhythm. S1, S2. ABDOMEN: Soft with mild left flank tenderness. IMPRESSION: A 61-year-old lady with multiple large left renal calculi and an indwelling left stent. PLAN: For shock wave lithotripsy of left renal calculi; possible left ureteroscopy, laser; stent replacement depending on preoperative imaging. CC: Dr. Arizmendi * [id number]/[facility] #: [id number] [facility]
[~2016-06-19 06:58] MED LIST changes: +Acetaminophen TAB* 325 MG ONE; -Buffered Lidocaine 1% SYR 3ML* 3 ML/SYR SYRINGE INTRADERM ONE; +Buffered Lidocaine 1% SYRIN* 3 ML/SYR SYRINGE INTRADERM ONE; -Dexamethasone IV* 4 MG/ML 1 ML (4 MG) IV SLOW PU ONE; -Dexamethasone IV* 4 MG/ML 1 ML (4 MG) ONE; -DiMENhydriNATE IV* 50 MG/ML VIAL IV PUSH PRN; -Famotidine IV* 10 MG/ML 2 ML (20 mg) IV ONE; -Famotidine IV* 10 MG/ML 2 ML (20 mg) ONE; +Furosemide IV* 10 MG/ML 2 ML VIAL (20 MG) ONE; -Gentamicin ADULT (*) 160 MG in NS 0.9% 100 ML* 100 ML IVPB ONE; +Lidocaine 2% PF* 5 ML VIAL ONE; -Midazolam* 1 MG/ML 2 ML VIAL (2 MG) ONE; -PROCHLORPERAZINE INJ 5 MG/ML 2 ML VIAL IV PRN; +Propofol* 10 MG/ML 20 ML BTL IV PUSH ONE; +Sodium Citrate/Citric Acid* 15 ML UDC ONE; +Sodium Citrate/Citric Acid* 15 ML UDC PO ONE; +cefTRIAXone(*) 2 GM ADDV.VIAL IVPB ONE; -cefTRIAXone(*) 2 GM in NS 0.9% 100 ML* 100 ML IVPB ONE
--- NOTE | 2016-06-19 08:18 | RAD ---
INDICATION: Left renal calculus COMPARISON: Most recent comparison KUB is dated May 22, 2016 TECHNIQUE: A single AP view of the lower abdomen and pelvis is obtained. FINDINGS: There are no acute bony or soft tissue abnormalities. The bowel gas pattern is normal. There is a moderate amount of stool overlying the renal shadows. Surgical material is noted at the low midline pelvis similar appearance to the previous x-ray. No large renal calculi are visualized. There is an anatomically aligned left double-J ureteral stent. IMPRESSION: Anatomically aligned left ureteral stent without identification of large left-sided calculus. The potential 1.9 cm calculus described in the previous KUB is not visualized on this examination.
[2016-06-19 10:59] VITALS: BP 157/90
--- NOTE | 2016-06-20 04:08 | OP ---
DATE OF OPERATION: 06/19/16 - [facility] DATE OF : 51 SURGEON: Fam Coughlin MD ANESTHESIOLOGIST: Dr. Corral. ANESTHESIA: General. PRE-OP DIAGNOSIS: Left renal calculi. POST-OP DIAGNOSIS: Left renal calculi. OPERATIVE PROCEDURE: Shock wave lithotripsy of left renal calculi. INDICATIONS: Brown Bae is a 61-year-old lady who had undergone urgent left stent insertion for large obstructing calculus at the left ureteropelvic junction associated with urinary tract infection. She also had additional left renal calculi and had undergone lithotripsy about a month ago. She is now being brought in for a followup lithotripsy in an effort to try and completely fragment the calculi prior to stent removal. COMPLICATIONS: None. POSTOPERATIVE CONDITION: Stable. DESCRIPTION OF PROCEDURE: After induction of general anesthesia, the patient was placed on lithotripsy table in the supine position. There was a lower pole calculus and then faint calcifications alongside the proximal aspect of the stent in the area of the ureteropelvic junction. Attention was first directed to the lower pole calculus. Shock wave lithotripsy was commenced at the rate of 60 shocks per minute. After the initial 300 shocks, there was a brief pause in lithotripsy for several minutes in an effort to minimize any potential trauma to the kidney. Lithotripsy was then resumed and a total of 1000 shocks were administered to this calculus. Next, calcification adjacent to the stent at the ureteropelvic junction was localized using fluoroscopy and shock wave lithotripsy was commenced again at a rate of 60 shocks per minute and additional 600 shocks were administered to this calculus. The patient tolerated the procedure satisfactorily and was transferred back to the recovery area in stable condition. Her stone analysis had shown 70% uric acid, 30% calcium oxalate calculus, and the plan is to continue potassium citrate to reduce the risk of recurrent uric acid stone formation. CC: Dr. Maggie Arizmendi* [id number]/[facility] #: [id number] [facility]
== END | disposition home or self-care (01) ==
LOC: OR 06:58
PROVIDERS: ATTEND Urology
DX: N20.0 Calculus of kidney (principal); I10 Essential (primary) hypertension; M19.90 Unspecified osteoarthritis, unspecified site; Z85.038 Personal history of other malignant neoplasm of large intestine; Z88.5 Allergy status to narcotic agent
CPT/HCPCS: 74000; A9270-GY; J0696; J1940; J2704; J3010